=== PATIENT | male | born 1980 ===

== ENCOUNTER 2017-01-16 06:41 | Emergency (ER) | payer OTHER ==
[2017-01-16 06:56] VITALS: BMI 21.7
--- NOTE | 2017-01-16 07:03 | C.PDOC ---
History Of Present Illness 36F c/o diffuse abdominal pain intermittent for the last 1-2 weeks. took advil this am and also "ampicillina" that her mother got from [place]. her pain is better at the moment. +nausea no fever, vomiting, change in stools, dysuria. pmh hormone therapy- pt is transgender and takes estradiol and spironolactone since 2013. denies psh. Time Seen by Provider: 01/16/17 07:02 Chief Complaint (Nursing): Abdominal Pain Past Medical History Vital Signs: Last Vital Signs Temp 98.2 F 01/16/17 11:17 Pulse 68 01/16/17 11:17 Resp 16 01/16/17 11:17 BP 122/70 01/16/17 11:17 Pulse Ox 100 01/16/17 11:17 Family History: States: Other Other Family History: nc - Social History Hx Alcohol Use: Yes Hx Substance Use: No - Immunization History Hx Tetanus Toxoid Vaccination: Yes Hx Influenza Vaccination: Yes Hx Pneumococcal Vaccination: Yes Review Of Systems Constitutional: Negative for: Fever, Chills, Weakness, Malaise Cardiovascular: Negative for: Chest Pain Respiratory: Negative for: Cough, Shortness of Breath Gastrointestinal: Positive for: Nausea, Abdominal Pain. Negative for: Vomiting , Diarrhea, Constipation, Melena, Hematochezia Genitourinary: Negative for: Dysuria, Frequency, Hematuria Physical Exam - Physical Exam Appears: Well, Non-toxic, No Acute Distress Skin: Warm, Dry Head: Atraumatic Eye(s): bilateral: PERRL Nose: No Epistaxis Oral Mucosa: Moist Lips: No Swelling, No Lesions Neck: Normal ROM Cardiovascular: Rhythm Regular Respiratory: No Decreased Breath Sounds, No Accessory Muscle Use, No Rales, No Rhonchi, No Wheezing Gastrointestinal/Abdominal: Soft, Tenderness (diffuse non-focal), No Distention , No Guarding, No Rebound Neurological/Psych: Oriented x3, Other (no focla deficits) ED Course And Treatment - Laboratory Results Result Diagrams: 01/16/17 08:10 01/16/17 08:10 O2 Sat by Pulse Oximetry: 99 - CT Scan/US Abd pelvis CT Other Rad Studies (CT/US): Read By Radiologist, Radiology Report Reviewed CT/US Interpretation: FINDINGS: LOWER THORAX: Unremarkable. LIVER: Unremarkable. No gross lesion or ductal dilatation. GALLBLADDER AND BILE DUCTS : Cholelithiasis without CT evidence of acute cholecystitis. PANCREAS: Unremarkable. No gross lesion or ductal dilatation. SPLEEN: Unremarkable. ADRENALS: Unremarkable. No mass. KIDNEYS AND URETERS: Unremarkable. No hydronephrosis. No solid mass. VASCULATURE: Unremarkable. No aortic aneurysm. BOWEL: Unremarkable. No obstruction. No gross mural thickening. APPENDIX: Normal appendix. PERITONEUM: Unremarkable. No free fluid. No free air. LYMPH NODES: Unremarkable. No enlarged lymph nodes. BLADDER: Unremarkable. REPRODUCTIVE: Unremarkable. BONES: No acute fracture. OTHER FINDINGS: None. IMPRESSION: Cholelithiasis without CT evidence of acute cholecystitis. Medical Decision Making Medical Decision Making: pt rested quietly during her ED stay, denied need for pain medication. she appears well no distress. I disc results, plan for f/u, and rtr. pt v/u and agrees w plan. Disposition - Disposition Referrals: Trae Gonzalez MD [Staff Provider] - Disposition: HOME/ ROUTINE Disposition Time: 11:06 Condition: GOOD Additional Instructions: Please follow up with your doctor and also with the surgeon. Return to the ER for any worsening symptoms or for any other concerns. Prescriptions: Ondansetron ODT [Zofran ODT] 4 mg PO Q4H PRN #10 odt PRN Reason: Nausea/Vomiting Instructions: Biliary Colic (ED), Acute Abdominal Pain (ED) Print Language: [place] ISLAND[place] - Clinical Impression Clinical Impression: Abdominal pain
[2017-01-16] MEDS ORDERED: Iohexol 240 (50 ml) PO ONE (07:37)
[2017-01-16] MEDS ORDERED: Iohexol 240 (50 ml) ONE (07:49)
[2017-01-16 08:18] LABS: RBC URINE < 1 /hpf (0-3); URINE BILIRUBIN NEGATIVE (NEGATIVE); URINE BLOOD NEGATIVE (NEGATIVE); URINE COLOR Yellow (YELLOW); URINE GLUCOSE (UA) NORMAL (Normal); URINE KETONE NEGATIVE (NEGATIVE); URINE LEUKOCYTE ESTERASE NEG Leu/uL (Negative); URINE PROTEIN NEGATIVE (NEGATIVE); URINE UROBILINOGEN NORMAL mg/dL (0.2-1.0); WBC URINE 2 /hpf (0-5)
[2017-01-16 08:20] LABS: BASO % 0.5 % (0.0-2.0); EOS # 0.1 K/uL (0.0-0.7); EOS % 1.9 % (0.0-4.0); HEMATOCRIT 37.2 % (34.0-51.0); LYMPH # 1.1 K/uL (1.0-4.3); LYMPH % 14.3 % (20.0-40.0); MEAN CELL VOLUME 84.8 fL (80.0-99.0); MEAN PLATELET VOLUME 10.7 fL (7.2-11.7); MONO # 0.4 K/uL (0.0-0.8); MONO % 5.5 % (0.0-10.0); NRBC % 0.1 % (0.0-2.0); RED CELL DISTRIBUTION WIDTH 13.1 % (11.5-14.5); WHITE BLOOD COUNT 7.5 K/uL (4.8-10.8)
[2017-01-16 09:50] LABS: CHLORIDE 98 mmol/L (98-107); POTASSIUM 4.5 mmol/L (3.6-5.2); SODIUM 135 mmol/L (132-148)
[2017-01-16 09:52] LABS: BILIRUBIN,TOTAL 0.4 mg/dL (0.2-1.3); GFR AFRICAN-AMERICAN > 60
[2017-01-16 09:53] LABS: ALB/GLOB RATIO 1.1 (1.0-2.1); ALKALINE PHOSPHATASE 52 U/L (38-126); ALT/SGPT 32 U/L (9-72); AST/SGOT 46 U/L (14-59); BLOOD UREA NITROGEN 21 mg/dL (7-20); CALCIUM 9.1 mg/dl (8.6-10.4); CARBON DIOXIDE 26 mmol/L (22-30); GLUCOSE,RANDOM 105 mg/dL (65-110); TOTAL PROTEIN 7.5 g/dL (6.3-8.3)
[2017-01-16] MEDS ORDERED: Iodixanol 320 MG/ML 100 ML BOTTLE IV ONE (10:12)
--- NOTE | 2017-01-16 10:54 | CT ---
PROCEDURE: CT Abdomen and Pelvis with contrast HISTORY: Diffuse, nonspecific abdominal pain. COMPARISON: None. TECHNIQUE: Contrast dose: 100 cc Visipaque 320. Radiation dose: Total exam DLP = 418.06. MGy-cm. This CT exam was performed using one or more of the following dose reduction techniques: Automated exposure control, adjustment of the mA and/or kV according to patient size, and/or use of iterative reconstruction technique. FINDINGS: LOWER THORAX: Unremarkable. LIVER: Unremarkable. No gross lesion or ductal dilatation. GALLBLADDER AND BILE DUCTS: Cholelithiasis without CT evidence of acute cholecystitis. PANCREAS: Unremarkable. No gross lesion or ductal dilatation. SPLEEN: Unremarkable. ADRENALS: Unremarkable. No mass. KIDNEYS AND URETERS: Unremarkable. No hydronephrosis. No solid mass. VASCULATURE: Unremarkable. No aortic aneurysm. BOWEL: Unremarkable. No obstruction. No gross mural thickening. APPENDIX: Normal appendix. PERITONEUM: Unremarkable. No free fluid. No free air. LYMPH NODES: Unremarkable. No enlarged lymph nodes. BLADDER: Unremarkable. REPRODUCTIVE: Unremarkable. BONES: No acute fracture. OTHER FINDINGS: None. IMPRESSION: Cholelithiasis without CT evidence of acute cholecystitis.
[2017-01-16 11:19] VITALS: BP 122/70; PULSE 68; RESP 16; TEMP 98.2
[2017-01-16 15:01] VITALS: O2SAT 99
== END 2017-01-16 11:17 | disposition home or self-care (01) ==
LOC: EDSEX → C.ER 06:41
DX: R10.9 Unspecified abdominal pain (principal)
CPT/HCPCS: 74177; 80053; 81001; 83690; 85025; 99285; Q9966; Q9967

== ENCOUNTER 2017-01-21 15:46 | Emergency (ER) | payer OTHER ==
[2017-01-21 15:46] VITALS: BMI 21.7
[2017-01-21 15:55] VITALS: BP 115/72; PULSE 79; RESP 18; TEMP 97.7; O2SAT 99
--- NOTE | 2017-01-21 16:40 | C.PDOC ---
Time Seen by Provider: 01/21/17 16:06 Chief Complaint (Nursing): Abdominal Pain Past Medical History Vital Signs: Last Vital Signs Temp 97.7 F 01/21/17 15:53 Pulse 79 01/21/17 15:53 Resp 18 01/21/17 15:53 BP 115/72 01/21/17 15:53 Pulse Ox 99 01/21/17 15:53 - Social History Hx Alcohol Use: Yes Hx Substance Use: No - Immunization History Hx Tetanus Toxoid Vaccination: Yes Hx Influenza Vaccination: Yes Hx Pneumococcal Vaccination: Yes ED Course And Treatment O2 Sat by Pulse Oximetry: 99
--- NOTE | 2017-01-21 16:42 | C.PDOC ---
History Of Present Illness 36 year old patient presents to the emergency department complaining of sharp abdominal pain since this morning. Patient states the pain began after eating homemade chicken soup this morning. Patient took Advil (4 tablets of 200 mg each ) prior to arrival to alleviate the pain. Last bowel movement was this morning. Patient was seen here 5 days ago for similar pain and a CT was done showing gallstones. Patient is undergoing hormone therapy- pt is transgender and takes estradiol and spironolactone since 2013. Patient with occasional nausea, no fever, no change in bowel movement, no urinary symptoms, no shortness of breath. Time Seen by Provider: 01/21/17 16:06 Chief Complaint (Nursing): Abdominal Pain History Per: Patient History/Exam Limitations: no limitations Onset/Duration Of Symptoms: Hrs (this morning) Current Symptoms Are (Timing): Still Present Context: Other Severity: Mild Pain Scale Rating Of: 3 Location Of Pain/Discomfort: Diffuse Radiation Of Pain To:: None Quality Of Discomfort: Sharp, "Pain" Associated Symptoms: Vomiting Exacerbating Factors: None Alleviating Factors: None Last Bowel Movement: Today Recent travel outside of the [place] States: No Past Medical History Reviewed: Historical Data, Nursing Documentation, Vital Signs Vital Signs: Last Vital Signs Temp 97.7 F 01/21/17 15:53 Pulse 79 01/21/17 15:53 Resp 18 01/21/17 15:53 BP 115/72 01/21/17 15:53 Pulse Ox 99 01/21/17 17:02 Family History: States: Unknown Family Hx - Social History Hx Alcohol Use: Yes Hx Substance Use: No - Immunization History Hx Tetanus Toxoid Vaccination: Yes Hx Influenza Vaccination: Yes Hx Pneumococcal Vaccination: Yes Review Of Systems Except As Marked, All Systems Reviewed And Found Negative. Constitutional: Negative for: Fever Respiratory: Negative for: Shortness of Breath Gastrointestinal: Positive for: Vomiting, Abdominal Pain. Negative for: Nausea , Diarrhea, Constipation Physical Exam - Physical Exam Appears: Non-toxic, No Acute Distress Skin: Warm, Dry Head: Atraumatic, Normacephalic Oral Mucosa: Moist Neck: Normal ROM, Supple Chest: Symmetrical Cardiovascular: Rhythm Regular Respiratory: Normal Breath Sounds, No Rales, No Rhonchi, No Wheezing Gastrointestinal/Abdominal: Soft, No Tenderness, No Guarding, No Rebound Back: Normal Inspection, No CVA Tenderness Extremity: Normal ROM Neurological/Psych: Oriented x3, Normal Speech, Normal Cognition Gait: Steady ED Course And Treatment O2 Sat by Pulse Oximetry: 99 (room air) Pulse Ox Interpretation: Normal Medical Decision Making Medical Decision Making: pt is refusing blood work at this time; has no fever, abdomen non tender on exam. without labs, unable to tell if pt developing infection in gallbladder, explained to patient and she still refuses. will leave ama; understands risks and consequences of this. pt given instructin on low fat diet and to go to clinic today to make an appt; has appt with surgeon on 02/18. pt reports motrin now starting to work and pain much less. AMA: REFUSED TREATMENT, LV The patient declines to have further medical evaluation and treatment and wishes to leave the Emergency Department. This action is against my medical advice to the patient and with informed refusal. The patient was told that evaluation and treatment are necessary and a full explanation of the rationale was given. The risks of leaving were explained to the patient and friend and include, but are not limited to, worsening of known or currently unknown conditions, permanent disability and from undiagnosed or untreated conditions. Based on my conversations with the patient, the patient has the capacity to make this informed decision and understands the clinical situation and my explanation of the risks of leaving. The patient voluntarily accepts these risks and a signed AMA form documenting our conversation was obtained. The patient was given the opportunity to ask questions and reconsider. The patient was encouraged to return to the Emergency Department at any time for further evaluation. Disposition Counseled Patient/Family Regarding: Diagnosis, Need For Followup - Disposition Referrals: [facility] [Outside] [facility] [Outside] Disposition: AGAINST MEDICAL ADVICE Disposition Time: 17:08 Condition: STABLE Additional Instructions: Follow up in medical clinic as soon as possible. Eat a low fat diet. Take 800 mg ibuprofen thriee times a day (with food) for pain. Follow up with surgeon as scheduled. Return to ER for any worsening symptoms., Instructions: Biliary Colic (ED), Gallstones (ED), Low Fat Diet (DC) Forms: Gen Discharge Inst Croatian - Clinical Impression Clinical Impression: Biliary colic - PA / LEGAL CONSULTANT / Resident Statement MD/DO has reviewed & agrees with the documentation as recorded. - Scribe Statement The provider has reviewed the documentation as recorded by the Scribangela Farr All medical record entries made by the Scribe were at my direction and personally dictated by me. I have reviewed the chart and agree that the record accurately reflects my personal performance of the history, physical exam, medical decision making, and the department course for this patient. I have also personally directed, reviewed, and agree with the discharge instructions and disposition.
== END 2017-01-21 17:16 | disposition left against medical advice (07) ==
LOC: C.ER 15:46
DX: K80.20 Calculus of gallbladder without cholecystitis without obstruction (principal)

== ENCOUNTER 2017-03-19 08:33 | Day surgery (SDC) | payer OTHER, SELFPAY ==
[2017-03-03 14:07] VITALS: BMI 29.2
[2017-03-19 09:27] VITALS: O2SAT 100
[2017-03-19] MEDS ORDERED: ceFAZolin IV 2 gm in Dextrose 1 GM/50 ML BAG IVPB ONE (10:03)
[2017-03-19] MEDS ORDERED: Midazolam 2 MG/2 ML VIAL ONE (10:29)
[2017-03-19] MEDS ORDERED: Lactated Ringer's 1,000 ML IV ONE ×2 (10:29→12:16)
[2017-03-19] MEDS ORDERED: Propofol 10 mg/ml Inj (20 ML) ONE (10:29)
[2017-03-19] MEDS: Bupivacaine-Epi 0.25%-1:200,000 PF Inj ONE ×2 (11:07→12:38)
[2017-03-19] MEDS: Lidocaine 1% Inj (20ml) ONE ×2 (11:08→12:38)
[2017-03-19] MEDS ORDERED: Neostigmine Methylsulfate 3mg/3ml Syringe IV ONE (12:04)
[2017-03-19] MEDS ORDERED: Oxycodone/Acetaminophen 5/325 mg Tab PO PRN (12:42)
--- NOTE | 2017-03-19 12:42 | PCM.SURG1 ---
Surgeon's Initial Post Op Note - Surgeon's Notes Surgeon: Dr. Gonzalez National Account Representative: Dr. Menjivar, Dr. Schultz Type of Anesthesia: General Endo, Local Pre-Operative Diagnosis: chronic cholecystitis Operative Findings: see op report Post-Operative Diagnosis: same Operation Performed: laparoscopic cholecystectomy Specimen/Specimens Removed: gallbladder Estimated Blood Loss: EBL {In ML}: 10 Blood Products Given: N/A Drains Used: No Drains Post-Op Condition: Good Date of Surgery/Procedure: 03/19/17 Time of Surgery/Procedure: 12:42
[2017-03-19] MEDS ORDERED: HYDROmorphone 0.5 mg/0.5 ml ISec ONE ×2 (13:07→14:02)
[2017-03-19] MEDS ORDERED: HYDROmorphone 0.5 mg/0.5 ml ISec IVP PRN (14:01)
[2017-03-19 15:49] VITALS: BP 143/65; PULSE 73; RESP 18; TEMP 98
--- NOTE | 2017-03-19 23:11 | OP ---
PROCEDURE DATE: 03/19/2017 PREOPERATIVE DIAGNOSIS: Chronic cholecystitis and cholelithiasis. POSTOPERATIVE DIAGNOSIS: Chronic cholecystitis and cholelithiasis. PROCEDURE: Laparoscopic cholecystectomy. SURGEON: Dr. Gonzalez. RN INTENSIVE CARE UNIT: [facility] Schultz PGY-3 resident and rAi Menjivar, PGY-II resident. TYPE OF ANESTHESIA: General endotracheal tube. ESTIMATED BLOOD LOSS: 10 mL DRAINS: None. PATHOLOGY: Gallbladder with gallstones were sent to the pathology. COMPLICATIONS: None. INTRAOPERATIVE FINDINGS: The patient had changes of chronic cholecystitis and cholelithiasis. DESCRIPTION OF PROCEDURE: On intraoperative steps, this 36-year-old male who was diagnosed with chronic cholecystitis and cholelithiasis, and patient was consented for laparoscopic cholecystectomy, possible open, brought to the OR, placed supine on operating table, after induction of the anesthesia, abdomen was prepped and draped in an usual sterile fashion and supraumbilical transverse 1.5 cm incision was made. After incising the skin and subcutaneous tissue, the fascia was incised, Allan port was placed. Pneumo was created. Another 12 mm port was placed in the midline below costal margin and two 5 mm ports were placed in midclavicular and ant axillary line. After that grasper and dissector was introduced and gallbladder was retracted cranially, Calot triangle dissection was done. Cystic duct and cystic artery was identified and clipped at 2 places and cut in between 2 clips nearby gallbladder and the gallbladder was dissected free from the gallbladder fossa, taken in the Endo-Catch bag, taken out through the umbilical port site and sent to the table for the pathology. There was proper hemostasis in each and every part of the procedure. All the ports were taken out under vision, pneumo was deflated. The umbilical port site was closed in 2 layers, the fascia with a 0 Vicryl interrupted sutures, skin with a 4-0 Monocryl, and dry sterile dressing was applied. The patient tolerated the procedure well. Count of instruments was correct. There was no apparent complication. Trae Gonzalez MD ADRY
== END 2017-03-19 15:52 | disposition home or self-care (01) ==
LOC: C.SDS 08:33
PROVIDERS: ATTEND Surgery Surgical Critical Care
DX: K80.13 Calculus of gallbladder with acute and chronic cholecystitis with obstruction (principal)
CPT/HCPCS: 47562; 88304; J0690; J1170; J1885; J2250; J2405; J2704; J2710; J3010; J7120